=== PATIENT | male | born 1995 | race Two or more races ===

== ENCOUNTER 2017-01-28 19:18 | Emergency (ER) | payer BC, MEDICAID ==
[~2017-01-28] VITALS: Ht 177.8 cm; Wt 77.1 kg
[2017-01-28 19:18] VITALS: BP 142/98
== END 2017-01-28 21:46 | disposition home or self-care (01) ==
LOC: ER 19:22
DX: S67.190A Crushing injury of right index finger, initial encounter (principal); S61.210A Laceration without foreign body of right index finger without damage to nail, initial encounter; W23.0XXA Caught, crushed, jammed, or pinched between moving objects, initial encounter; Y93.89 Activity, other specified; Y92.89 Other specified places as the place of occurrence of the external cause; Y99.9 Unspecified external cause status
CPT/HCPCS: 73130; 99284; A4606; Z7610